=== PATIENT | female | born 1970 | race Hispanic/Latino ===

== ENCOUNTER → 2018-05-23 | Outpatient (CLI) | payer OTHER ==
[~2018-05-23] MED LIST: GADOBENATE DIMEGLUMINE 1 ML IV ONE
--- NOTE | 2018-05-23 22:35 | Diagnostic Imaging Report ---
EXAMINATION: MRI of the cervical and thoracic spine without and with contrast. HISTORY: Multiple sclerosis follow-up. COMPARISON: Cervical spine MRI on 02/09/2015 and thoracic spine MRI 11 05/13/2011. TECHNIQUE: Pre-contrast sagittal T1, T2, STIR; axial T1, T2.. Post contrast axial and sagittal T1. Intravenous Contrast: 13 mL of MultiHance. FINDINGS: Spinal Cord: Spinal cord size: Normal T1 lesions: None Enhancing lesions: None T2 lesions: None Others: Vertebrae: Normal alignment, height, signal intensity. Discs: Minimal disc bulge at C6-C7 without canal or foraminal stenosis. Craniocervical junction: Normal. IMPRESSION: Normal cervical and thoracic spine MRIs, particularly no spinal cord demyelinating lesions, unchanged from prior MRIs. Signed by: Dr. Joan Selby M.D. on 05/23/2018 10:32 PM
--- NOTE | 2018-05-23 22:43 | Diagnostic Imaging Report ---
EXAMINATION: MRI of the brain without and with contrast . HISTORY: Multiple sclerosis follow-up. COMPARISON: Brain MRI of 02/09/2015 TECHNIQUE: Precontrast axial DWI, T1, T2, T2 FLAIR, Volumetric T2 FLAIR FS reconstructed in the axial, sagittal and coronal planes. Postcontrast volumetric T1 FS obtained in the coronal plane reconstructed in the axial and sagittal planes Intravenous contrast: 13 mL MultiHance FINDINGS: T2 lesions: There is an approximately 5 mm new right frontal centrum semiovale T2 lesion. Otherwise unchanged in previous pain 8-10 demyelinating T2 lesions located in the corpus callosum, callosal-septal interface, periventricular and deep cerebral white matter . Again average size is about 5 mm. Unchanged T2 bandlike hyperintensity along the inferior margin of the corpus callosum. T1 lesions: None Enhancing lesions: None Corpus callosum volume: Persistent mild atrophy of the posterior body Brain volume: Mild prominence of the cerebral and cerebellar sulci for patient's age. Other: No mass, hydrocephalus, hemorrhage, acute or chronic infarcts. Mild mucosal inflammatory thickening of the sphenoid sinuses. IMPRESSION: 1. There is one new demyelinating T2 lesion when compared to MRI on 02/09/2015. Otherwise unchanged few supratentorial white matter MS lesions. No new enhancing lesions. 2. Mild generalized volume loss as detailed above. Signed by: Dr. Joan Selby M.D. on 05/23/2018 10:39 PM
== END ==
LOC: MRI 14:00
PROVIDERS: ATTEND Psychiatry & Neurology Clinical Neurophysiology
DX: G35 Multiple sclerosis (principal)
CPT/HCPCS: 70553; 72156; 72157; 81025

== ENCOUNTER → 2020-04-06 | Outpatient (CLI) | payer OTHER | LOC: MRI 13:33 | PROVIDERS: ATTEND Psychiatry & Neurology Clinical Neurophysiology | DX: G35 Multiple sclerosis (principal) | CPT/HCPCS: 70553; 72156; 72157 ==

== ENCOUNTER → 2020-04-17 | Outpatient (CLI) | payer OTHER | END | disposition home or self-care (01) | LOC: DX 13:03 | PROVIDERS: ATTEND Specialist | DX: Z13.820 Encounter for screening for osteoporosis (principal); Z78.0 Asymptomatic menopausal state; M35.00 Sjogren syndrome, unspecified; G35 Multiple sclerosis; E03.9 Hypothyroidism, unspecified; F41.1 Generalized anxiety disorder; J30.9 Allergic rhinitis, unspecified | CPT/HCPCS: 77080 ==

== ENCOUNTER → 2021-01-11 | Outpatient (CLI) | payer OTHER | LOC: MRI 09:37 | PROVIDERS: ATTEND Physician Assistant | DX: G35 Multiple sclerosis (principal) | CPT/HCPCS: 70553; 72156; 72157 ==

== ENCOUNTER → 2021-10-19 | Outpatient (CLI) | payer OTHER | LOC: MRI 12:57 | PROVIDERS: ATTEND Psychiatry & Neurology Neurology | DX: G35 Multiple sclerosis (principal) | CPT/HCPCS: 70553; 72156; 72157 ==

== ENCOUNTER → 2021-11-10 | Outpatient (CLI) | payer OTHER | LOC: MRI 12:53 | PROVIDERS: ATTEND Orthopaedic Surgery Hand Surgery | DX: S63.512D Sprain of carpal joint of left wrist, subsequent encounter (principal) ==

== ENCOUNTER → 2021-12-15 | Outpatient (CLI) | payer OTHER | LOC: MRI 11:13 | PROVIDERS: ATTEND Physician Assistant | DX: M54.16 Radiculopathy, lumbar region (principal); M51.36 Other intervertebral disc degeneration, lumbar region | CPT/HCPCS: 72148 ==

== ENCOUNTER → 2022-11-21 | Outpatient (CLI) | payer OTHER | LOC: MRI 10-21 09:51 | PROVIDERS: ATTEND Orthopaedic Surgery | DX: G56.22 Lesion of ulnar nerve, left upper limb (principal); M79.642 Pain in left hand ==

== ENCOUNTER → 2023-04-25 | Outpatient (REF) | payer OTHER | LOC: MRI 11:19 | PROVIDERS: ATTEND Orthopaedic Surgery | DX: M22.42 Chondromalacia patellae, left knee (principal); S83.012A Lateral subluxation of left patella, initial encounter ==

== ENCOUNTER → 2023-04-28 | Outpatient (REF) | payer OTHER | LOC: MRI 11:17 | PROVIDERS: ATTEND Internal Medicine Rheumatology | DX: M54.40 Lumbago with sciatica, unspecified side (principal); M06.89 Other specified rheumatoid arthritis, multiple sites | CPT/HCPCS: 72148 ==

== ENCOUNTER → 2023-10-31 | Outpatient (REF) | payer OTHER | LOC: MRI 11:45 | PROVIDERS: ATTEND Psychiatry & Neurology Neurology | DX: G35 Multiple sclerosis (principal); M51.36 Other intervertebral disc degeneration, lumbar region | CPT/HCPCS: 72148 ==

== ENCOUNTER → 2023-11-01 | Outpatient (REF) | payer OTHER | LOC: MRI 13:51 | PROVIDERS: ATTEND Psychiatry & Neurology Neurology | DX: G35 Multiple sclerosis (principal); M51.36 Other intervertebral disc degeneration, lumbar region | CPT/HCPCS: 72156 ==

== ENCOUNTER → 2025-01-22 | Outpatient (REF) | payer OTHER | LOC: MRI 15:25 | PROVIDERS: ATTEND Chiropractor | DX: M54.51 Vertebrogenic low back pain (principal) | CPT/HCPCS: 72148 ==